=== PATIENT | female | born 1975 | race African-American/Black ===

== ENCOUNTER 2017-03-04 16:54 | Emergency (ER) | payer MEDICAID ==
[~2017-03-04] VITALS: Ht 170.2 cm; Wt 80.0 kg
[2017-03-04] MEDS ORDERED: SERT25TA PO (17:04)
[2017-03-04] MEDS ORDERED: ACET-2178 PO (17:04)
[2017-03-04] MEDS ORDERED: IBUPROFEN 800MG TABLET PO ONE (18:30)
[2017-03-04 18:45] LABS: BASOPHILS % 0.6 % (0.0-2.0); EOSINOPHILS % 1.1 % (0.0-5.0); HEMATOCRIT. 40.7 % (36.0-48.0); HEMOGLOBIN. 13.9 g/dL (12.0-16.0); LYMPHOCYTES % 22.1 % (20.0-50.0); MEAN CORPUSCULAR HEMOGLOBIN 30.9 pg (28.0-32.0); MEAN CORPUSCULAR HGB CONC 34.1 g/dL (31.0-37.0); MEAN CORPUSCULAR VOLUME 90.7 fL (81.0-99.0); MEAN PLATELET VOLUME 8.5 fl (7.4-10.4); MONOCYTES % 8.3 % (2.0-8.0); NEUTROPHILS % 67.9 % (40.0-76.0); PLATELET 207 x1000/uL (130-400); RED BLOOD CELL COUNT 4.49 mill/uL (4.2-5.4); RED CELL DISTRIBUTION WIDTH 12.9 % (11.6-14.6); WHITE BLOOD COUNT 7.6 x1000/uL (4.5-11.0)
[2017-03-04 18:55] LABS: PARTIAL THROMBOPLASTIN TIME 27.5 sec (24.0-34.0); PROTHROMBIN TIME 10.7 sec
[2017-03-04 19:02] LABS: ALANINE AMINOTRANSFERASE 18 IU/L (13-61); ALBUMIN 3.8 g/dL (3.4-5.0); ANION GAP 12; CALCIUM 8.8 mg/dL (8.5-10.1); CARBON DIOXIDE 26 mEq/L (21-32); CHLORIDE 106 mEq/L (98-107); INDEX HEMOLYSI 1 (1-3); INDEX ICTERIC 1 (1-4); INDEX LIPEMIC 1 (1-3); NT PRO B-TYPE NATRIURETIC PEP 60 pg/mL (5-125); TROPONIN I < 0.02 ng/mL (0.00-0.04); UREA NITROGEN BLOOD 14 mg/dL (7-21); eGFR > 60 mL/min (>60)
[2017-03-04 19:25] VITALS: BP 129/80
[2017-03-04 19:39] LABS: HCG SCREEN NEGATIVE
== END 2017-03-04 21:00 | disposition home or self-care (01) ==
LOC: ER 19:07
DX: R07.2 Precordial pain (principal); F32.9 Major depressive disorder, single episode, unspecified; K58.9 Irritable bowel syndrome, unspecified; K21.9 Gastro-esophageal reflux disease without esophagitis; M19.90 Unspecified osteoarthritis, unspecified site; Z88.0 Allergy status to penicillin
CPT/HCPCS: 36415; 71010; 80053; 83880; 84484; 84703; 85025; 85610; 85730; 93005; 99285